=== PATIENT | male | born 1945 | race Caucasian/White ===

== ENCOUNTER 2017-07-31 09:29 | Outpatient (CLI) | payer OTHER ==
[2017-07-31] MEDS ORDERED: LOTREL 5-20 MG1 CAP PO (16:54)
[2017-07-31] MEDS ORDERED: SIMVASTATIN10 MG PO (16:55)
[2017-07-31] MEDS ORDERED: SYNTHROID125 MCG PO (16:55)
[2017-07-31] MEDS ORDERED: TAMS0.4C PO (16:55)
[2017-07-31] MEDS ORDERED: CEFUROXIME500 MG PO (16:56)
[2017-07-31] MEDS ORDERED: FINASTERIDE5 MG PO (16:56)
== END 2017-07-31 15:00 | disposition home or self-care (01) ==
LOC: RAD 09:29
DX: I10 Essential (primary) hypertension (principal)

== ENCOUNTER 2017-08-01 11:30 | Inpatient (IN) | payer OTHER ==
[~2017-08-01] VITALS: Ht 165.1 cm; Wt 70.8 kg
[~2017-08-01 11:30] MED LIST: CEFUROXIME500 MG PO; FINASTERIDE5 MG PO; LOTREL 5-20 MG1 CAP PO; SIMVASTATIN10 MG PO; SYNTHROID125 MCG PO; TAMS0.4C PO
== END 2017-08-02 09:40 | disposition home or self-care (01) | DRG 714 ==
LOC: O/R 11:30 → SURH 12:30 → SURG 20:09 → O/R 20:12
PROVIDERS: Urology
PROC: 0VT08ZZ Resection of Prostate, Via Natural or Artificial Opening Endoscopic (ICD-10-PCS; principal; 2017-08-01 12:30)
DX: N40.1 Benign prostatic hyperplasia with lower urinary tract symptoms (principal); R33.8 Other retention of urine

== ENCOUNTER 2017-08-19 12:55 | Emergency (ER) | payer OTHER ==
[~2017-08-19] VITALS: Ht 167.6 cm; Wt 69.4 kg
== END 2017-08-20 08:03 | disposition home or self-care (01) ==
LOC: ER 12:55
DX: R31.0 Gross hematuria (principal)

== ENCOUNTER 2017-08-22 22:31 | Inpatient (IN) | payer OTHER ==
[~2017-08-22] VITALS: Ht 165.1 cm; Wt 69.4 kg
[2017-08-31] MEDS ORDERED: PROSCAR5 MG PO (10:08)
== END 2017-08-27 10:04 | disposition home or self-care (01) | DRG 696 ==
LOC: ER 22:31 → SEC-K 08-23 07:49 → SURH 08-24 16:24
PROC: BW28ZZZ Computerized Tomography (CT Scan) of Head (ICD-10-PCS; principal; 2017-08-23)
DX: R33.8 Other retention of urine (principal); B37.49 Other urogenital candidiasis; R31.0 Gross hematuria; R55 Syncope and collapse; N32.89 Other specified disorders of bladder; D50.0 Iron deficiency anemia secondary to blood loss (chronic)

== ENCOUNTER 2017-08-30 10:53 | Outpatient (CLI) | payer OTHER ==
[2017-08-31] MEDS ORDERED: PROSCAR5 MG PO (10:08)
== END 2017-08-30 10:55 | disposition home or self-care (01) ==
LOC: LAB 10:53
DX: D62 Acute posthemorrhagic anemia (principal)

== ENCOUNTER 2017-08-31 10:50 | Inpatient (IN) | payer OTHER ==
[~2017-08-31 10:50] MED LIST changes: +PROSCAR5 MG PO
== END 2017-09-04 09:47 | disposition home or self-care (01) | DRG 707 ==
LOC: CIR.AMB 10:50 → SURH 15:59 → O/R 15:59 → SURH 17:34
PROVIDERS: Urology
PROC: 0TCB8ZZ Extirpation of Matter from Bladder, Via Natural or Artificial Opening Endoscopic (ICD-10-PCS; 2017-08-31)
PROC: 0V504ZZ Destruction of Prostate, Percutaneous Endoscopic Approach (ICD-10-PCS; principal; 2017-08-31 12:00)
PROC: 30233N1 Transfusion of Nonautologous Red Blood Cells into Peripheral Vein, Percutaneous Approach (ICD-10-PCS; 2017-09-02)
PROC: BW21ZZZ Computerized Tomography (CT Scan) of Abdomen and Pelvis (ICD-10-PCS; 2017-09-02)
DX: N40.1 Benign prostatic hyperplasia with lower urinary tract symptoms (principal); D62 Acute posthemorrhagic anemia; N31.0 Uninhibited neuropathic bladder, not elsewhere classified; N32.89 Other specified disorders of bladder; R33.8 Other retention of urine; R31.0 Gross hematuria; I10 Essential (primary) hypertension

== ENCOUNTER 2017-09-11 10:28 | Outpatient (CLI) | payer OTHER | END 2017-09-11 12:46 | disposition home or self-care (01) | LOC: LAB 10:28 | DX: D62 Acute posthemorrhagic anemia (principal) ==